=== PATIENT | female | born 1990 | race Caucasian/White ===

== ENCOUNTER 2020-11-07 17:48 | Inpatient (IN) | payer OTHER ==
[2020-11-07 18:43] LABS: HEMOGLOBIN 12.8 gm/dl (12.3-15.3); RED BLOOD COUNT 4.1 M/UL (4.00-5.10); WHITE BLOOD COUNT 9.8 K/UL (4.5-11.0)
[2020-11-08 06:38] LABS: HEMOGLOBIN 11.5 gm/dl (12.3-15.3)
[2020-11-08] MEDS ORDERED: DOCUSATE SODIU100 MG PO (13:19)
[2020-11-08] MEDS ORDERED: IBUPROFEN600 MG PO (13:19)
[2020-11-08] MEDS ORDERED: LORTAB 5-325 M1 EACH PO (13:19)
== END 2020-11-08 22:30 | disposition home or self-care (01) | DRG 787 ==
LOC: GENOP 17:48 → OB 17:56
PROVIDERS: ADMIT Obstetrics & Gynecology
PROC: 10D00Z1 Extraction of Products of Conception, Low, Open Approach (ICD-10-PCS; principal; 2020-11-07 19:17)
PROC: 3E02340 Introduction of Influenza Vaccine into Muscle, Percutaneous Approach (ICD-10-PCS; 2020-11-08)
PROC: 3E0234Z Introduction of Serum, Toxoid and Vaccine into Muscle, Percutaneous Approach (ICD-10-PCS; 2020-11-08)
DX: O32.1XX0 Maternal care for breech presentation, not applicable or unspecified (principal); O41.03X0 Oligohydramnios, third trimester, not applicable or unspecified; Z3A.37 37 weeks gestation of pregnancy; Z37.0 Single live birth; Z20.822 Contact with and (suspected) exposure to COVID-19; O36.5930 Maternal care for other known or suspected poor fetal growth, third trimester, not applicable or unspecified; O75.89 Other specified complications of labor and delivery; G40.909 Epilepsy, unspecified, not intractable, without status epilepticus; Z23 Encounter for immunization
CPT/HCPCS: 36415; 81001; 82800; 85014; 85018; 85025; 90686; 90715; C9113; G0008; J0690; J1170; J1885; J2274; J2590; J3010; J7120; U0002; U0003